=== PATIENT | female | born 1990 | race Caucasian/White ===

== ENCOUNTER 2018-09-21 14:35 | Emergency (ER) | payer OTHER ==
[~2018-09-21] VITALS: Ht 162.6 cm; Wt 104.3 kg
[2018-09-21 14:51] VITALS: BP 107/65
[2018-09-21] MEDS ORDERED: IBUPROFEN 800 MG TAB PO ONE (16:15)
== END 2018-09-21 16:47 | disposition home or self-care (01) ==
LOC: ER 14:35
DX: S76.012A Strain of muscle, fascia and tendon of left hip, initial encounter (principal); S80.01XA Contusion of right knee, initial encounter; W01.0XXA Fall on same level from slipping, tripping and stumbling without subsequent striking against object, initial encounter; Y93.89 Activity, other specified; Y99.8 Other external cause status; Y92.89 Other specified places as the place of occurrence of the external cause
CPT/HCPCS: 73502; 73562

== ENCOUNTER 2021-08-21 23:58 | Observation (INO) | payer MEDICAID ==
[~2021-08-21] VITALS: Ht 162.6 cm; Wt 98.0 kg
[2021-08-22] MEDS ORDERED: ASPI325T4 PO (00:50)
[2021-08-22] MEDS ORDERED: PREN27TA7 OR (01:15)
== END 2021-08-22 02:15 | disposition home or self-care (01) ==
LOC: LDRP 23:58
PROVIDERS: ADMIT Obstetrics & Gynecology; ATTEND Obstetrics & Gynecology
DX: O26.893 Other specified pregnancy related conditions, third trimester (principal); R03.0 Elevated blood-pressure reading, without diagnosis of hypertension; O14.13 Severe pre-eclampsia, third trimester; Z3A.28 28 weeks gestation of pregnancy
CPT/HCPCS: 59025; 81002; 94760; G0378

== ENCOUNTER 2021-08-26 19:00 | Observation (INO) | payer MEDICAID ==
[~2021-08-26 19:00] MED LIST: ASPI325T4 PO; PREN27TA7 OR
== END 2021-08-26 21:27 | disposition home or self-care (01) ==
LOC: LDRP 19:00
PROVIDERS: ADMIT Obstetrics & Gynecology Obstetrics; ATTEND Obstetrics & Gynecology Obstetrics
DX: O13.3 Gestational [pregnancy-induced] hypertension without significant proteinuria, third trimester (principal); O24.419 Gestational diabetes mellitus in pregnancy, unspecified control; O99.353 Diseases of the nervous system complicating pregnancy, third trimester; G40.909 Epilepsy, unspecified, not intractable, without status epilepticus; O26.893 Other specified pregnancy related conditions, third trimester; R10.2 Pelvic and perineal pain; Z3A.28 28 weeks gestation of pregnancy
CPT/HCPCS: 59025; 76818; 81002; 94760; G0378

== ENCOUNTER 2021-08-30 15:20 | Observation (INO) | payer MEDICAID | END 2021-08-30 17:40 | disposition home or self-care (01) | LOC: LDRP 15:48 | PROVIDERS: ADMIT Obstetrics & Gynecology; ATTEND Obstetrics & Gynecology | DX: O13.3 Gestational [pregnancy-induced] hypertension without significant proteinuria, third trimester (principal); O09.293 Supervision of pregnancy with other poor reproductive or obstetric history, third trimester; Z3A.29 29 weeks gestation of pregnancy | CPT/HCPCS: 59025; 76818; 81002; G0378 ==

== ENCOUNTER 2021-09-06 16:01 | Observation (INO) | payer BC, MEDICAID | END 2021-09-06 18:05 | disposition home or self-care (01) | LOC: LDRP 16:01 | PROVIDERS: ADMIT Obstetrics & Gynecology; ATTEND Obstetrics & Gynecology | DX: O13.3 Gestational [pregnancy-induced] hypertension without significant proteinuria, third trimester (principal); Z3A.30 30 weeks gestation of pregnancy; Z87.59 Personal history of other complications of pregnancy, childbirth and the puerperium | CPT/HCPCS: 59025; 76818; 81002; G0378 ==

== ENCOUNTER 2021-09-20 08:09 | Observation (INO) | payer BC, MEDICAID | END 2021-09-20 18:05 | disposition home or self-care (01) | LOC: LDRP 16:11 | PROVIDERS: ADMIT Obstetrics & Gynecology; ATTEND Obstetrics & Gynecology | DX: O13.3 Gestational [pregnancy-induced] hypertension without significant proteinuria, third trimester (principal); O24.419 Gestational diabetes mellitus in pregnancy, unspecified control; O99.353 Diseases of the nervous system complicating pregnancy, third trimester; G40.909 Epilepsy, unspecified, not intractable, without status epilepticus; Z3A.32 32 weeks gestation of pregnancy | CPT/HCPCS: 59025; 76818; 81002; G0378 ==

== ENCOUNTER 2021-09-24 22:25 | Observation (INO) | payer BC, MEDICAID ==
[~2021-09-24] VITALS: Ht 162.6 cm; Wt 100.2 kg
== END 2021-09-24 23:55 | disposition home or self-care (01) ==
LOC: LDRP 22:25
PROVIDERS: ADMIT Obstetrics & Gynecology; ATTEND Obstetrics & Gynecology
DX: O26.893 Other specified pregnancy related conditions, third trimester (principal); R10.9 Unspecified abdominal pain; O99.891 Other specified diseases and conditions complicating pregnancy; M54.50 Low back pain, unspecified; O24.419 Gestational diabetes mellitus in pregnancy, unspecified control; O99.354 Diseases of the nervous system complicating childbirth; G40.909 Epilepsy, unspecified, not intractable, without status epilepticus; Z3A.33 33 weeks gestation of pregnancy
CPT/HCPCS: 59025; 81002; 94760; G0378

== ENCOUNTER 2021-09-27 15:31 | Observation (INO) | payer BC, MEDICAID | END 2021-09-27 17:05 | disposition home or self-care (01) | LOC: UNDOADMOB 15:31 → LDRP 15:31 | PROVIDERS: ADMIT Obstetrics & Gynecology; ATTEND Obstetrics & Gynecology | DX: O13.3 Gestational [pregnancy-induced] hypertension without significant proteinuria, third trimester (principal); O24.419 Gestational diabetes mellitus in pregnancy, unspecified control; O99.353 Diseases of the nervous system complicating pregnancy, third trimester; G40.909 Epilepsy, unspecified, not intractable, without status epilepticus; Z3A.33 33 weeks gestation of pregnancy; Z87.59 Personal history of other complications of pregnancy, childbirth and the puerperium | CPT/HCPCS: 59025; 76818; 81002; 94760; G0378 ==

== ENCOUNTER 2021-10-11 10:29 | Observation (INO) | payer BC, MEDICAID ==
[2021-10-11 18:40] LABS: Basophils # (auto) 0 10 ^3/uL (0-0.2); Basophils % (auto) 0.3 % (0.0-2.0); Eosinophils # (auto) 0 10 ^3/uL (0-0.8); Eosinophils % (auto) 0.5 % (0.0-7.0); Hematocrit 31.5 % (36.0-46.0); Hemoglobin 10.1 g/dL (12.2-16.2); Lymphocytes # (auto) 1.2 10 ^3/uL (0.4-5.4); Lymphocytes % (auto) 15.3 % (10.0-50.0); Mean Corpuscular Hgb Conc. 32.3 g/dL (32.0-36.0); Mean Corpuscular Volume 83.7 fL (80.0-100.0); Monocytes # (auto) 0.5 10 ^3/uL (0-1.3); Monocytes % (auto) 6.9 % (0.0-12.0); Neutrophils # (auto) 5.8 10 ^3/uL (1.6-8.6); Red Blood Cells 3.76 10^6/uL (4.0-5.20); Red Cell Distribution Width 13.7 % (11.8-14.3); White Blood Cell 7.5 10^3/uL (4.4-10.8)
[2021-10-11 18:55] LABS: INR 0.95 (0.9-1.15); Partial Thromboplastin Time 24.6 sec (23.6-33.0)
[2021-10-11 19:09] LABS: Potassium 3.3 mmol/L (3.5-5.1)
[2021-10-11 19:16] LABS: Albumin 2.4 g/dL (3.4-5.0); BUN/Creatinine Ratio 12.8; Bilirubin, Total 0.2 mg/dL (0.2-1.0); Calcium 8.1 mg/dL (8.5-10.1); Total Protein 6.1 g/dL (6.4-8.2)
[2021-10-11 19:24] LABS: Protein, Urine 40.7 mg/dL (0.0-11.9)
[2021-10-11 20:30] LABS: Urine Bacteria FEW /hpf (None Seen); Urine Blood Negative /uL (Negative); Urine Mucus FEW (None Seen); Urine WBC 2 /hpf (0 - 5)
== END 2021-10-11 20:52 | disposition home or self-care (01) ==
LOC: UNDOADMOB 16:02 → LDRP 16:02
PROVIDERS: ADMIT Obstetrics & Gynecology; ATTEND Obstetrics & Gynecology
DX: O40.3XX0 Polyhydramnios, third trimester, not applicable or unspecified (principal); O26.893 Other specified pregnancy related conditions, third trimester; R60.0 Localized edema; O24.419 Gestational diabetes mellitus in pregnancy, unspecified control; O99.353 Diseases of the nervous system complicating pregnancy, third trimester; G40.909 Epilepsy, unspecified, not intractable, without status epilepticus; Z3A.35 35 weeks gestation of pregnancy; Z87.59 Personal history of other complications of pregnancy, childbirth and the puerperium
CPT/HCPCS: 36415; 59025; 76818; 80053; 81001; 81002; 82570; 84156; 84550; 85025; 85610; 85730; 94760; G0378

== ENCOUNTER 2021-10-14 09:04 | Observation (INO) | payer BC, MEDICAID | END 2021-10-14 21:11 | disposition home or self-care (01) | LOC: LDRP 09:04 | PROVIDERS: ADMIT Obstetrics & Gynecology; ATTEND Obstetrics & Gynecology | DX: O36.4XX0 Maternal care for intrauterine death, not applicable or unspecified (principal); O13.3 Gestational [pregnancy-induced] hypertension without significant proteinuria, third trimester; Z3A.35 35 weeks gestation of pregnancy | CPT/HCPCS: 59025; 76818; 81002; G0378 ==

== ENCOUNTER 2021-10-18 07:31 | Observation (INO) | payer BC, MEDICAID | END 2021-10-19 12:21 | disposition home or self-care (01) | LOC: LDRP 10-19 11:13 → UNDOADMOB 10-19 11:13 → LDRP 10-19 11:26 → UNDODISOB 10-19 12:21 | PROVIDERS: ADMIT Obstetrics & Gynecology; ATTEND Obstetrics & Gynecology | DX: O13.3 Gestational [pregnancy-induced] hypertension without significant proteinuria, third trimester (principal); O09.293 Supervision of pregnancy with other poor reproductive or obstetric history, third trimester; Z3A.36 36 weeks gestation of pregnancy | CPT/HCPCS: 59025; 76818; 81002; 94760; G0378 ==

== ENCOUNTER 2021-10-25 14:10 | Observation (INO) | payer BC, MEDICAID | END 2021-10-25 15:23 | disposition home or self-care (01) | LOC: UNDOADMOB 14:10 → LDRP 14:10 → UNDODISOB 15:23 | PROVIDERS: ADMIT Obstetrics & Gynecology; ATTEND Obstetrics & Gynecology | DX: O13.3 Gestational [pregnancy-induced] hypertension without significant proteinuria, third trimester (principal); O26.853 Spotting complicating pregnancy, third trimester; O24.419 Gestational diabetes mellitus in pregnancy, unspecified control; O99.353 Diseases of the nervous system complicating pregnancy, third trimester; G40.909 Epilepsy, unspecified, not intractable, without status epilepticus; Z3A.37 37 weeks gestation of pregnancy; Z87.59 Personal history of other complications of pregnancy, childbirth and the puerperium | CPT/HCPCS: 59025; 76818; 81002; 94760; 99284; G0378 ==

== ENCOUNTER 2021-10-27 14:49 | Observation (INO) | payer BC, MEDICAID ==
[~2021-10-27] VITALS: Ht 162.6 cm; Wt 96.6 kg
[2021-10-27] MEDS ORDERED: ONDANSETRON ODT 4 MG TAB PO PRN (16:00)
[2021-10-27] MEDS ORDERED: ACETAMINOPHEN 325 MG TAB PO PRN (16:15)
[2021-10-27 16:59] LABS: Basophils # (auto) 0 10 ^3/uL (0-0.2); Basophils % (auto) 0.2 % (0.0-2.0); Eosinophils # (auto) 0 10 ^3/uL (0-0.8); Eosinophils % (auto) 0.2 % (0.0-7.0); Hemoglobin 10.4 g/dL (12.2-16.2); Lymphocytes # (auto) 0.8 10 ^3/uL (0.4-5.4); Lymphocytes % (auto) 20.5 % (10.0-50.0); Mean Corpuscular Hemoglobin 25.4 pg (28.0-32.0); Mean Corpuscular Hgb Conc. 31.4 g/dL (32.0-36.0); Monocytes # (auto) 0.3 10 ^3/uL (0-1.3); Monocytes % (auto) 7.2 % (0.0-12.0); Neutrophils # (auto) 2.7 10 ^3/uL (1.6-8.6); Neutrophils % (auto) 71.9 % (37.0-80.0); Red Blood Cells 4.08 10^6/uL (4.0-5.20); Red Cell Distribution Width 14.3 % (11.8-14.3); White Blood Cell 3.8 10^3/uL (4.4-10.8)
[2021-10-27 17:14] LABS: Albumin 2.3 g/dL (3.4-5.0); Calcium 8.1 mg/dL (8.5-10.1); Potassium 3.6 mmol/L (3.5-5.1)
[2021-10-27 17:15] LABS: Urine Bacteria MOD /hpf (None Seen); Urine Blood Negative /uL (Negative); Urine Mucus FEW (None Seen); Urine Specific Gravity 1.034 (1.001-1.035); Urine WBC 7 /hpf (0 - 5)
[2021-10-27 17:18] LABS: BUN/Creatinine Ratio 11.8; Bilirubin, Total 0.3 mg/dL (0.2-1.0)
[2021-10-27 17:21] LABS: INR 0.88 (0.9-1.15); Partial Thromboplastin Time 26.9 sec (24.6-33.4)
[2021-10-27] MEDS ORDERED: CEPH-322 PO (17:54)
== END 2021-10-27 18:05 | disposition home or self-care (01) ==
LOC: UNDOADMOB 14:49 → LDRP 14:49
PROVIDERS: ADMIT Obstetrics & Gynecology; ATTEND Obstetrics & Gynecology
DX: O26.893 Other specified pregnancy related conditions, third trimester (principal); R51.9 Headache, unspecified; R42 Dizziness and giddiness; R11.0 Nausea; O24.419 Gestational diabetes mellitus in pregnancy, unspecified control; O99.353 Diseases of the nervous system complicating pregnancy, third trimester; G40.909 Epilepsy, unspecified, not intractable, without status epilepticus; Z3A.37 37 weeks gestation of pregnancy
CPT/HCPCS: 36415; 59025; 76818; 80053; 81001; 81002; 82570; 84156; 84550; 85025; 85362; 85379; 85610; 85730; 94760; G0378; Q0162

== ENCOUNTER 2021-11-01 09:56 | Observation (INO) | payer BC, MEDICAID ==
[~2021-11-01] VITALS: Ht 162.6 cm; Wt 102.5 kg
[~2021-11-01 09:56] MED LIST changes: +CEPH-322 PO
[2021-11-01 18:34] LABS: Basophils # (auto) 0 10 ^3/uL (0-0.2); Eosinophils # (auto) 0 10 ^3/uL (0-0.8); Monocytes # (auto) 0.5 10 ^3/uL (0-1.3); Red Cell Distribution Width 14.5 % (11.8-14.3)
[2021-11-01 18:36] LABS: Basophils % (auto) 0.1 % (0.0-2.0); Eosinophils % (auto) 0.5 % (0.0-7.0); Hemoglobin 10.5 g/dL (12.2-16.2); Lymphocytes # (auto) 1.1 10 ^3/uL (0.4-5.4); Lymphocytes % (auto) 16.4 % (10.0-50.0); Mean Corpuscular Hemoglobin 26.5 pg (28.0-32.0); Mean Corpuscular Hgb Conc. 32.7 g/dL (32.0-36.0); Mean Corpuscular Volume 81.2 fL (80.0-100.0); Monocytes % (auto) 7.1 % (0.0-12.0); Neutrophils % (auto) 75.9 % (37.0-80.0); Red Blood Cells 3.94 10^6/uL (4.0-5.20); White Blood Cell 6.5 10^3/uL (4.4-10.8)
[2021-11-01 18:38] LABS: Albumin 2.4 g/dL (3.4-5.0); Calcium 8.3 mg/dL (8.5-10.1); Potassium 3.6 mmol/L (3.5-5.1)
[2021-11-01 18:41] LABS: BUN/Creatinine Ratio 14.8; Bilirubin, Total 0.2 mg/dL (0.2-1.0)
== END 2021-11-01 20:14 | disposition home or self-care (01) ==
LOC: LDRP 16:10
PROVIDERS: ADMIT Obstetrics & Gynecology; ATTEND Obstetrics & Gynecology
DX: O13.3 Gestational [pregnancy-induced] hypertension without significant proteinuria, third trimester (principal); O09.293 Supervision of pregnancy with other poor reproductive or obstetric history, third trimester; O26.893 Other specified pregnancy related conditions, third trimester; L29.9 Pruritus, unspecified; Z3A.38 38 weeks gestation of pregnancy
CPT/HCPCS: 36415; 59025; 76818; 80053; 81002; 84550; 85025; 94760; G0378

== ENCOUNTER 2021-11-03 10:35 | Observation (INO) | payer BC, MEDICAID | END 2021-11-03 17:22 | disposition home or self-care (01) | LOC: LDRP 14:57 → UNDOADMOB 15:01 | PROVIDERS: ADMIT Obstetrics & Gynecology; ATTEND Obstetrics & Gynecology | DX: O13.3 Gestational [pregnancy-induced] hypertension without significant proteinuria, third trimester (principal); O09.293 Supervision of pregnancy with other poor reproductive or obstetric history, third trimester; Z3A.38 38 weeks gestation of pregnancy | CPT/HCPCS: 59025; 76818; 81002; G0378 ==

== ENCOUNTER 2021-11-06 08:05 | Observation (INO) | payer BC, MEDICAID ==
[~2021-11-06] VITALS: Ht 162.6 cm; Wt 102.5 kg
== END 2021-11-06 10:16 | disposition home or self-care (01) ==
LOC: LDRP 08:05
PROVIDERS: ADMIT Obstetrics & Gynecology; ATTEND Obstetrics & Gynecology
DX: O99.891 Other specified diseases and conditions complicating pregnancy (principal); M54.9 Dorsalgia, unspecified; O13.3 Gestational [pregnancy-induced] hypertension without significant proteinuria, third trimester; O24.419 Gestational diabetes mellitus in pregnancy, unspecified control; O99.353 Diseases of the nervous system complicating pregnancy, third trimester; G40.909 Epilepsy, unspecified, not intractable, without status epilepticus; Z3A.39 39 weeks gestation of pregnancy; Z87.59 Personal history of other complications of pregnancy, childbirth and the puerperium; Z91.040 Latex allergy status
CPT/HCPCS: 59025; 81002; 94760; G0378

== ENCOUNTER 2021-11-07 00:45 | Observation (INO) | payer BC, MEDICAID ==
[~2021-11-07 00:45] MED LIST changes: -CEPH-322 PO
== END 2021-11-07 02:00 | disposition home or self-care (01) ==
LOC: LDRP 00:45
PROVIDERS: ADMIT Obstetrics & Gynecology; ATTEND Obstetrics & Gynecology
DX: O62.9 Abnormality of forces of labor, unspecified (principal); O34.63 Maternal care for abnormality of vagina, third trimester; N89.8 Other specified noninflammatory disorders of vagina; O24.419 Gestational diabetes mellitus in pregnancy, unspecified control; O99.353 Diseases of the nervous system complicating pregnancy, third trimester; G40.909 Epilepsy, unspecified, not intractable, without status epilepticus; Z3A.39 39 weeks gestation of pregnancy
CPT/HCPCS: 59025; 81002; 94762; G0378

== ENCOUNTER 2021-11-08 07:16 | Inpatient (IN) | payer BC, MEDICAID ==
[~2021-11-08] VITALS: Ht 162.6 cm; Wt 102.5 kg
[2021-11-08] MEDS ORDERED: WITCH HAZEL-GLYCERIN PAD TOP PRN (13:45)
[2021-11-08] MEDS ORDERED: PROMETHAZINE HCL 25 MG/ML 1ML IV PRN (13:45)
[2021-11-08] MEDS ORDERED: PHISODERM TOP SOLN 240ML BTL TOP PRN (13:45)
[2021-11-08] MEDS ORDERED: NS/OXYTOCIN 20UNITS 500 ML IV ONE ×2 (13:45→14:15)
[2021-11-08] MEDS ORDERED: LIDOCAINE 2%HCL (LOCAL ANESTH.) INJ 10ml MDV IJ PRN (13:45)
[2021-11-08] MEDS ORDERED: DERMOPLAST 60ML BOTTLE TOP PRN (13:45)
[2021-11-08] MEDS ORDERED: BUTORPHANOL TARTRATE 2 MG/1 ML VIAL IV PRN ×2 (13:45)
[2021-11-08 14:37] LABS: Albumin 2.6 g/dL (3.4-5.0); Calcium 8.2 mg/dL (8.5-10.1); Potassium 3.6 mmol/L (3.5-5.1)
[2021-11-08 14:39] LABS: BUN/Creatinine Ratio 11.9
[2021-11-08 14:44] LABS: Basophils # (auto) 0 10 ^3/uL (0-0.2); Eosinophils # (auto) 0 10 ^3/uL (0-0.8); Eosinophils % (auto) 0.4 % (0.0-7.0); Lymphocytes # (auto) 0.9 10 ^3/uL (0.4-5.4)
[2021-11-08 14:45] LABS: Bilirubin, Total 0.3 mg/dL (0.2-1.0); Total Protein 6.5 g/dL (6.4-8.2)
[2021-11-08 14:48] LABS: Basophils % (auto) 0.2 % (0.0-2.0); Hematocrit 33.5 % (36.0-46.0); Hemoglobin 10.9 g/dL (12.2-16.2); Lymphocytes % (auto) 12.4 % (10.0-50.0); Mean Corpuscular Hemoglobin 27.3 pg (28.0-32.0); Mean Corpuscular Hgb Conc. 32.5 g/dL (32.0-36.0); Monocytes # (auto) 0.4 10 ^3/uL (0-1.3); Monocytes % (auto) 4.8 % (0.0-12.0); Neutrophils % (auto) 82.2 % (37.0-80.0); Red Blood Cells 3.99 10^6/uL (4.0-5.20); Red Cell Distribution Width 14.9 % (11.8-14.3); White Blood Cell 7.3 10^3/uL (4.4-10.8)
[2021-11-08 14:51] LABS: INR 0.91 (0.9-1.15); Partial Thromboplastin Time 24.7 sec (24.6-33.4)
[2021-11-08 15:03] LABS: Alcohol, Urine < 3.0 mg/dL (0-10); Amphetamine Screen, Urine NEGATIVE (NEGATIVE); Barbiturate Scree,Urine NEGATIVE (NEGATIVE); Benzodiazephine Screen, Urine NEGATIVE (NEGATIVE); Cannabinoid Screen, Urine NEGATIVE (NEGATIVE); Cocaine Screen, Urine NEGATIVE (NEGATIVE); Opiate Scree,Urine NEGATIVE (NEGATIVE); Phencyclidine Screen, Urine NEGATIVE (NEGATIVE)
[2021-11-08 15:08] LABS: Urine Bacteria FEW /hpf (None Seen); Urine Blood 1+ /uL (Negative); Urine Mucus FEW (None Seen); Urine WBC 75 /hpf (0 - 5)
[2021-11-08] MEDS: LACTATED RINGER'S 1,000 ML IV SCH (15:34)
[2021-11-08] MEDS ORDERED: hydrOXYzine 25 MG TAB or CAP PO ONE (21:15)
[2021-11-08] MEDS: miSOPROStol 50 MCG per PRE-CUT 1/2 TAB PO PRN (23:34)
[2021-11-09 06:07] LABS: RPR Non Reactive (Non Reactive)
[2021-11-09] MEDS: miSOPROStol 50 MCG per PRE-CUT 1/2 TAB PO PRN ×2 (06:33→07:50)
[2021-11-09] MEDS: LACTATED RINGER'S 1,000 ML IV SCH ×4 (06:34→13:42)
[2021-11-09] MEDS ORDERED: ePHEDrine SULFATE 50 MG/ML AMP IV ONE (09:00)
[2021-11-09] MEDS ORDERED: NALOXONE HCL 0.4 MG/ML VIAL IV ONE (09:00)
[2021-11-09] MEDS ORDERED: ROPIVACAINE HCL 200 ML EPI SCH (09:00)
[2021-11-09] MEDS ORDERED: fentaNYL CITRATE 100 MCG/2 ML VL IV ONE (09:00)
[2021-11-09] MEDS ORDERED: TERBUTALINE SULFATE 1 MG/ML 1ML VIAL SC ONE (13:45)
[2021-11-09] MEDS ORDERED: ceFAZolin 1GM VL ONE (17:13)
[2021-11-09] MEDS ORDERED: ceFAZolin 1GM/50ML 50 ML IV ONE (17:14)
[2021-11-09] MEDS ORDERED: KETOROLAC TROMETH 30 MG/ML 1ML VIAL ONE (17:37)
[2021-11-09] MEDS ORDERED: ONDANSETRON HCL 4 MG/2 ML VIAL ONE (17:42)
[2021-11-09] MEDS ORDERED: DexAMETHasone SOD PHOS 10MG/1ML VIAL INJ ONE (17:42)
[2021-11-09] MEDS ORDERED: LIDOCAINE W/ EPINEPHRINE 2% INJ 20ML VIAL ONE (17:42)
[2021-11-09] MEDS ORDERED: METOCLOPRAMIDE HCL 5MG/ml INJ 2ml VIAL ONE (17:42)
[2021-11-09] MEDS ORDERED: MORPHINE SULF PF 5 MG/10 ML VIAL ONE (17:58)
[2021-11-09] MEDS ORDERED: CARBOPROST TROMETHAMINE 250 MCG/1ML VIAL IM ONE (18:00)
[2021-11-09] MEDS ORDERED: LACT. RINGERS/OXYTOCIN 20UNITS 1,000 ML IV ONE (18:15)
[2021-11-09] MEDS ORDERED: ceFAZolin 1GM/50ML 50 ML IV SCH (18:15)
[2021-11-09] MEDS ORDERED: ONDANSETRON HCL 4 MG/2 ML VIAL IV PRN (18:15)
[2021-11-09] MEDS ORDERED: IBUP800T27 PO (18:22)
[2021-11-09] MEDS ORDERED: DOCU-94 PO (18:22)
[2021-11-09] MEDS ORDERED: HYDR-4902 PO (18:22)
[2021-11-09 19:15] VITALS: BP 131/75
[2021-11-09 19:30] VITALS: BP 122/75
[2021-11-09 19:45] VITALS: BP 137/62
[2021-11-09 20:00] VITALS: BP 122/71
[2021-11-09 21:00] VITALS: BP 133/64
[2021-11-09 22:30] VITALS: BP 118/69
[2021-11-09 23:16] LABS: Eosinophils # (auto) 0 10 ^3/uL (0-0.8); Lymphocytes # (auto) 0.4 10 ^3/uL (0.4-5.4); Monocytes # (auto) 0.4 10 ^3/uL (0-1.3); White Blood Cell 13.9 10^3/uL (4.4-10.8)
[2021-11-09 23:18] LABS: Basophils # (auto) 0 10 ^3/uL (0-0.2); Basophils % (auto) 0.3 % (0.0-2.0); Hemoglobin 10.1 g/dL (12.2-16.2); Mean Corpuscular Hemoglobin 25.5 pg (28.0-32.0); Mean Corpuscular Hgb Conc. 31.6 g/dL (32.0-36.0); Mean Corpuscular Volume 80.8 fL (80.0-100.0); Monocytes % (auto) 3.2 % (0.0-12.0); Neutrophils % (auto) 93.5 % (37.0-80.0); Red Blood Cells 3.97 10^6/uL (4.0-5.20)
[2021-11-10] VITALS (12 sets, daily range): BP systolic 92–118; BP diastolic 51–69
[2021-11-10] MEDS: ceFAZolin 1GM/50ML 50 ML IV SCH ×3 (01:09→16:59)
[2021-11-10 06:01] LABS: Basophils # (auto) 0 10 ^3/uL (0-0.2); Basophils % (auto) 0.2 % (0.0-2.0); Eosinophils # (auto) 0 10 ^3/uL (0-0.8); Hematocrit 27.9 % (36.0-46.0); Lymphocytes # (auto) 0.7 10 ^3/uL (0.4-5.4); Lymphocytes % (auto) 5.2 % (10.0-50.0); Mean Corpuscular Hgb Conc. 32.2 g/dL (32.0-36.0); Mean Corpuscular Volume 80.8 fL (80.0-100.0); Monocytes # (auto) 0.8 10 ^3/uL (0-1.3); Monocytes % (auto) 5.8 % (0.0-12.0); Neutrophils # (auto) 12.5 10 ^3/uL (1.6-8.6); Neutrophils % (auto) 88.8 % (37.0-80.0); Red Blood Cells 3.45 10^6/uL (4.0-5.20); White Blood Cell 14.1 10^3/uL (4.4-10.8)
[2021-11-10] MEDS: LACTATED RINGER'S 1,000 ML IV SCH ×2 (09:08→13:45)
[2021-11-10] MEDS ORDERED: HYDROcodone-ACET 5/325MG TAB PO PRN ×2 (14:00)
[2021-11-10] MEDS ORDERED: BISACODYL 10 MG RECT SUPP PR PRN (14:00)
[2021-11-10] MEDS: SIMETHICONE 80 MG CHEWABLE TABLET PO SCH ×2 (18:19→21:49)
[2021-11-10] MEDS: IBUPROFEN 800 MG TAB PO PRN (21:48)
[2021-11-10] MEDS: DOCUSATE SOD 100 MG CAP PO SCH (21:49)
[2021-11-11 03:00] VITALS: BP 94/46
[2021-11-11] MEDS: SIMETHICONE 80 MG CHEWABLE TABLET PO SCH (05:54)
[2021-11-11 07:00] VITALS: BP 93/60
[2021-11-11] MEDS: DOCUSATE SOD 100 MG CAP PO SCH (09:40)
[2021-11-11] MEDS: IBUPROFEN 800 MG TAB PO PRN (09:40)
[2021-11-11] MEDS ORDERED: DOCUSATE CALCIUM 240 MG CAP PO SCH (10:00)
[2021-11-11 11:00] VITALS: BP 127/77
== END 2021-11-11 13:15 | disposition home or self-care (01) | DRG 788 ==
LOC: LDRP 13:29 → OBSVTOIN 13:30 → LDRP 11-09 07:37
PROVIDERS: ADMIT Obstetrics & Gynecology; ATTEND Obstetrics & Gynecology
PROC: 3E0DXGC Introduction of Other Therapeutic Substance into Mouth and Pharynx, External Approach (ICD-10-PCS; principal; 2021-11-08)
PROC: 10D00Z1 Extraction of Products of Conception, Low, Open Approach (ICD-10-PCS; 2021-11-09)
DX: O76 Abnormality in fetal heart rate and rhythm complicating labor and delivery (principal); O69.81X0 Labor and delivery complicated by cord around neck, without compression, not applicable or unspecified; O77.0 Labor and delivery complicated by meconium in amniotic fluid; Z20.822 Contact with and (suspected) exposure to COVID-19; Z37.0 Single live birth; Z87.59 Personal history of other complications of pregnancy, childbirth and the puerperium
CPT/HCPCS: 36415; 59025; 80053; 80307; 81001; 81002; 85025; 85610; 85730; 86592; 86850; 86900; 86901; 90384; 94760; 94762; 96360; 96361; 96372; G0378; J0690; J1100; J1885; J2001; J2405